=== PATIENT | female | born 1975 | race Caucasian/White ===

== ENCOUNTER → 2016-09-29 | Outpatient (CLI) | payer BC ==
[~2016-09-29] MED LIST: ALEVE 220MG220 MG PO; ALLEGRA-D 24HR1 T24 PO; CLARITIN-D 10 M1 T24 PO; COLACE 100100 MG/CAP PO; DIFLUCAN150 MG PO; FLAGYL 250250 MG/TAB PO; LOVENOX120 MG/0.8 SQ; MULTI VITAMINS1 TAB PO; NASACORT OTC NS; NORCO 325 MG-51 TAB PO; NORCO 325 MG-7.1 TAB PO; PRENATAL PO; PROBIOTIC ACID1 EAC3 PO; PROTONIX20 MG PO; TRANDATE300 MG PO; TUMS500 MG PO; ULTRAM 50MG TAB50 MG PO; ZITHROMAX Z PA250 MG PO; ZOFRAN ODT4 MG PO; ZOSYN IV; ZYRTEC 10MG10 MG PO
== END ==
LOC: SUN.DIA 08:50
DX: O24.419 Gestational diabetes mellitus in pregnancy, unspecified control (principal); Z3A.31 31 weeks gestation of pregnancy; Z71.3 Dietary counseling and surveillance
CPT/HCPCS: G0108

== ENCOUNTER 2016-10-02 01:52 | Outpatient (CLI) | payer BC ==
[~2016-10-02] VITALS: Ht 170.2 cm; Wt 127.7 kg
[2016-10-02] VITALS (16 sets, daily range): BP systolic 138–195; BP diastolic 75–108; PULSE 75–107; TEMP 97.7–98.7
[~2016-10-02 01:52] MED LIST changes: -DIFLUCAN150 MG PO; -FLAGYL 250250 MG/TAB PO; -LOVENOX120 MG/0.8 SQ; -PRENATAL PO; -PROBIOTIC ACID1 EAC3 PO; -TRANDATE300 MG PO; -TUMS500 MG PO; -ZITHROMAX Z PA250 MG PO; -ZOSYN IV; -ZYRTEC 10MG10 MG PO
[2016-10-02] MEDS ORDERED: ZYRTEC 10MG10 MG PO (02:43)
[2016-10-02] MEDS ORDERED: PRENATAL PO (02:43)
[2016-10-02] MEDS ORDERED: TUMS500 MG PO (02:44)
[2016-10-02 03:58] LABS: BASO % 0.2 % (0.0-2.0); EOS % 0.3 % (0-4.0); GRAN # 11.8 (1.4-6.5); GRAN % 87.1 % (42.2-75.2); LYMPH # 0.9 (1.2-3.4); LYMPH % 6.4 % (20.0-51.0); MEAN CELL VOLUME 88 fl (80.0-100.0); MEAN CORPUSCULAR HGB CONC 34 g/dl (33.0-37.0); MEAN PLATELET VOLUME 10.9 fl (7.4-10.4); MONO # 0.8 (0.1-0.6); MONO % 5.6 % (1.7-9.3); PLATELET COUNT 199 K/mm3 (130-400); RED BLOOD COUNT 4.02 M/mm3 (4.10-5.30); REDCELL DISTRIBUTION WIDTH-CV 13.9 % (11.5-14.5); WHITE BLOOD COUNT 13.5 K/mm3 (4.8-10.8)
[2016-10-02 03:59] LABS: HEMATOCRIT 35.5 % (37.0-47.0); HEMOGLOBIN 11.9 g/dl (12.5-16.0); MEAN CORPUSCULAR HEMOGLOBIN 30 pg (27.0-31.0)
[2016-10-02 04:08] LABS: ADJUSTED CALCIUM 9.7 mg/dL (8.4-10.2); ALANINE AMINOTRANSFERASE 37 U/L (9-52); ALBUMIN 3.4 gm/dL (3.5-5.0); ALKALINE PHOSPHATASE 160 U/L (50-136); ANION GAP 11 mmol/L (7-16); BILIRUBIN,TOTAL 0.6 mg/dL (0.0-1.0); BLOOD UREA NITROGEN 11 mg/dL (7-17); CALCIUM 9.2 mg/dL (8.4-10.2); CARBON DIOXIDE 21 mmol/L (22-30); CHLORIDE 104 mmol/L (98-107); CREATININE, serum 0.68 mg/dL (0.52-1.25); GLUCOSE 136 mg/dL (74-106); LIPASE 71 U/L (23-300); POTASSIUM 4.3 mmol/L (3.4-5.0); SODIUM 135 mmol/L (137-145)
[2016-10-02 04:27] LABS: PH 5 (5-8); SQUAMOUS EPITHELIAL 0-2 /hpf; URINE APPEARANCE Cloudy; URINE BACTERIA Rare /hpf; URINE BILIRUBIN Negative (NEGATIVE); URINE BLOOD Negative (NEGATIVE); URINE COLOR Yellow; URINE GLUCOSE 1+ (NEGATIVE); URINE KETONE 1+ (NEGATIVE); URINE RBC 0-2 /hpf; URINE UROBILINOGEN Negative (NEGATIVE)
[2016-10-02 07:44] LABS: TROPONIN-I < 0.012 ng/mL (0.000-0.034)
[2017-05-18] MEDS ORDERED: ULTRAM 50MG TAB50 MG PO (15:39)
[2017-05-18] MEDS ORDERED: ZOSYN IV (15:42)
[2017-05-18] MEDS ORDERED: DIFLUCAN150 MG PO (15:43)
[2017-05-18] MEDS ORDERED: PROBIOTIC ACID1 EAC3 PO (15:44)
== END 2016-10-02 08:30 | disposition short-term general hospital (02) ==
LOC: LDRO 01:52
PROVIDERS: Obstetrics & Gynecology
DX: O26.893 Other specified pregnancy related conditions, third trimester (principal); R10.84 Generalized abdominal pain; O99.213 Obesity complicating pregnancy, third trimester; O24.419 Gestational diabetes mellitus in pregnancy, unspecified control; O09.33 Supervision of pregnancy with insufficient antenatal care, third trimester; O16.3 Unspecified maternal hypertension, third trimester; Z3A.31 31 weeks gestation of pregnancy
CPT/HCPCS: J0702; J2405; J3475; J7120

== ENCOUNTER → 2016-11-21 | Outpatient (CLI) | payer BC ==
[~2016-11-21] MED LIST changes: +DIFLUCAN150 MG PO; +FLAGYL 250250 MG/TAB PO; +LOVENOX120 MG/0.8 SQ; +PRENATAL PO; +PROBIOTIC ACID1 EAC3 PO; +TRANDATE300 MG PO; +TUMS500 MG PO; +ZITHROMAX Z PA250 MG PO; +ZOSYN IV; +ZYRTEC 10MG10 MG PO
== END ==
LOC: COL.VAS 09:36
DX: Z01.818 Encounter for other preprocedural examination (principal); R01.1 Cardiac murmur, unspecified; C48.0 Malignant neoplasm of retroperitoneum

== ENCOUNTER 2016-12-01 01:54 | Emergency (ER) | payer BC ==
[2006-07-28 15:29] VITALS: BP 109/54
[~2016-12-01] VITALS: Ht 170.2 cm; Wt 113.6 kg
[~2016-12-01 01:54] MED LIST changes: -DIFLUCAN150 MG PO; -FLAGYL 250250 MG/TAB PO; -LOVENOX120 MG/0.8 SQ; -PROBIOTIC ACID1 EAC3 PO; -TRANDATE300 MG PO; -ZITHROMAX Z PA250 MG PO; -ZOSYN IV
[2016-12-01 02:33] LABS: BASO % 0.3 % (0.0-2.0); EOS % 0.3 % (0-4.0); GRAN # 9.3 (1.4-6.5); GRAN % 78.6 % (42.2-75.2); LYMPH # 1.2 (1.2-3.4); LYMPH % 9.8 % (20.0-51.0); MEAN CELL VOLUME 92 fl (80.0-100.0); MEAN CORPUSCULAR HGB CONC 33 g/dl (33.0-37.0); MONO # 1.2 (0.1-0.6); MONO % 10.4 % (1.7-9.3); PLATELET COUNT 240 K/mm3 (130-400); RED BLOOD COUNT 3.55 M/mm3 (4.10-5.30); REDCELL DISTRIBUTION WIDTH-CV 13.5 % (11.5-14.5); WHITE BLOOD COUNT 11.8 K/mm3 (4.8-10.8)
[2016-12-01 02:37] LABS: HEMATOCRIT 32.6 % (37.0-47.0); HEMOGLOBIN 10.6 g/dl (12.5-16.0); INR 1.3 (0.8-3.0); MEAN CORPUSCULAR HEMOGLOBIN 30 pg (27.0-31.0)
[2016-12-01 02:39] LABS: PARTIAL THROMBOPLASTIN TIME 36.6 SECONDS (26.0-37.0)
[2016-12-01 02:45] LABS: ADJUSTED CALCIUM 9.3 mg/dL (8.4-10.2); ALBUMIN 3.9 gm/dL (3.5-5.0); BILIRUBIN,TOTAL 1.2 mg/dL (0.0-1.0); CALCIUM 9.2 mg/dL (8.4-10.2); CREATININE, serum 1.22 mg/dL (0.52-1.25); POTASSIUM 4.1 mmol/L (3.4-5.0); TOTAL PROTEIN 7.9 gm/dL (6.4-8.2)
[2016-12-01 02:59] LABS: PH 5 (5-8); URINE APPEARANCE Hazy; URINE BACTERIA Rare /hpf; URINE BILIRUBIN Negative (NEGATIVE); URINE BLOOD 1+ (NEGATIVE); URINE COLOR Amber; URINE GLUCOSE Negative (NEGATIVE); URINE KETONE Negative (NEGATIVE); URINE RBC 0-2 /hpf; URINE UROBILINOGEN Negative (NEGATIVE)
[2016-12-01 03:13] LABS: C-REACTIVE PROTEIN 31.5 mg/dL (0.0-0.9)
[2016-12-01 03:59] LABS: PH 6 (5-8); SQUAMOUS EPITHELIAL 0-2 /hpf; URINE APPEARANCE Clear; URINE BACTERIA None Seen /hpf; URINE BILIRUBIN Negative (NEGATIVE); URINE BLOOD Negative (NEGATIVE); URINE COLOR Yellow; URINE GLUCOSE Negative (NEGATIVE); URINE KETONE Negative (NEGATIVE); URINE RBC 0-2 /hpf; URINE UROBILINOGEN Negative (NEGATIVE); URINE WBC 0-2 /hpf
[2016-12-01] MEDS ORDERED: LOVENOX120 MG/0.8 SQ (06:18)
[2016-12-01] MEDS ORDERED: TRANDATE300 MG PO (06:18)
[2016-12-01] MEDS ORDERED: ZITHROMAX Z PA250 MG PO (06:19)
[2016-12-01] MEDS ORDERED: FLAGYL 250250 MG/TAB PO (06:20)
[2016-12-01 08:05] VITALS: BP 137/79; PULSE 97; TEMP 98.4
[2017-05-18] MEDS ORDERED: ULTRAM 50MG TAB50 MG PO (15:39)
[2017-05-18] MEDS ORDERED: ZOSYN IV (15:42)
[2017-05-18] MEDS ORDERED: DIFLUCAN150 MG PO (15:43)
[2017-05-18] MEDS ORDERED: PROBIOTIC ACID1 EAC3 PO (15:44)
== END 2016-12-01 08:08 | disposition short-term general hospital (02) ==
LOC: COL.ER 01:54
PROVIDERS: Emergency Medicine
DX: C17.0 Malignant neoplasm of duodenum (principal); C48.0 Malignant neoplasm of retroperitoneum; R50.9 Fever, unspecified; I10 Essential (primary) hypertension; Z79.01 Long term (current) use of anticoagulants; Z86.711 Personal history of pulmonary embolism
CPT/HCPCS: J0692; J1170; J2405; J7030; Q9967

== ENCOUNTER → 2017-05-03 | Outpatient (CLI) | payer BC ==
[~2017-05-03] MED LIST changes: +DIFLUCAN150 MG PO; +FLAGYL 250250 MG/TAB PO; +LOVENOX120 MG/0.8 SQ; +PROBIOTIC ACID1 EAC3 PO; +TRANDATE300 MG PO; +ZITHROMAX Z PA250 MG PO; +ZOSYN IV
== END ==
LOC: COL.RAD 07:21
DX: K65.1 Peritoneal abscess (principal); Z98.890 Other specified postprocedural states; R10.9 Unspecified abdominal pain
CPT/HCPCS: Q9967

== ENCOUNTER 2017-05-18 16:01 | Outpatient (RCR) | payer BC ==
[2006-07-28 15:29] VITALS: BP 109/54
[~2017-05-18] VITALS: Ht 170.2 cm; Wt 90.1 kg
[2017-05-18 15:52] VITALS: BP 112/81; PULSE 88
[2017-05-18 15:56] LABS: ADD PATHOLOGY DIFF REVIEW NO
[2017-05-18 16:00] LABS: MEAN CELL VOLUME 88 fl (80.0-100.0); MEAN CORPUSCULAR HGB CONC 32 g/dl (33.0-37.0); MEAN PLATELET VOLUME 10.4 fl (7.4-10.4); PLATELET COUNT 193 K/mm3 (130-400); RED BLOOD COUNT 4.09 M/mm3 (4.10-5.30); REDCELL DISTRIBUTION WIDTH-CV 15.2 % (11.5-14.5); WHITE BLOOD COUNT 6.7 K/mm3 (4.8-10.8)
[2017-05-18 16:02] LABS: HEMOGLOBIN 11.6 g/dl (12.5-16.0); MEAN CORPUSCULAR HEMOGLOBIN 28 pg (27.0-31.0)
[2017-05-18 16:14] LABS: ALBUMIN 3.7 gm/dL (3.5-5.0); BILIRUBIN,TOTAL 0.5 mg/dL (0.0-1.0); CALCIUM 8.8 mg/dL (8.4-10.2); CREATININE, serum 0.89 mg/dL (0.52-1.25); POTASSIUM 3.9 mmol/L (3.4-5.0); TOTAL PROTEIN 7.3 gm/dL (6.4-8.2)
[2017-05-18 16:27] LABS: BAND 3 % (0-10); NEUTROPHILS 63 % (42.0-75.2); TOTAL CELLS COUNTED 100
[2017-05-18 16:29] LABS: HYPOCHROMIA 2+
[2017-05-18 16:30] LABS: ANISOCYTOSIS 1+; PLATELET ESTIMATE NORMAL (NORMAL)
== END 2017-05-25 19:06 | disposition home or self-care (01) ==
LOC: EUO 16:01
PROVIDERS: Family Medicine
DX: N73.9 Female pelvic inflammatory disease, unspecified (principal); Z95.828 Presence of other vascular implants and grafts
CPT/HCPCS: J1644

== ENCOUNTER → 2018-01-05 | Outpatient (CLI) | payer BC ==
[~2018-01-05] MED LIST changes: +COMPAZINE 110 MG/TAB PO; +LOVENOX 4040 MG/0.4 SQ; +ZOFRAN 4MG T4 MG/TAB PO
== END ==
LOC: COL.VAS 09:04
DX: T88.7XXS Unspecified adverse effect of drug or medicament, sequela (principal); Z92.21 Personal history of antineoplastic chemotherapy

== ENCOUNTER 2018-01-12 09:30 | Outpatient (RCR) | payer BC ==
[2006-07-28 15:29] VITALS: BP 109/54
[2018-01-05 09:59] VITALS: BP 120/49; PULSE 69; TEMP 98.4
[2018-01-08 10:05] VITALS: BP 113/58; PULSE 71; TEMP 98
[2018-01-10 13:06] VITALS: BP 117/61; PULSE 75; TEMP 98
[~2018-01-12] VITALS: Ht 170.2 cm; Wt 80.5 kg
[2018-01-12 08:55] VITALS: BP 119/62; PULSE 70; TEMP 98
== END 2018-01-12 10:05 | disposition home or self-care (01) ==
LOC: EUO 09:30
DX: O99.011 Anemia complicating pregnancy, first trimester (principal); O9A.111 Malignant neoplasm complicating pregnancy, first trimester; C49.9 Malignant neoplasm of connective and soft tissue, unspecified; Z3A.00 Weeks of gestation of pregnancy not specified
CPT/HCPCS: J2916

== ENCOUNTER 2018-07-13 19:55 | Outpatient (CLI) | payer BC ==
[2006-07-28 15:29] VITALS: BP 109/54
[~2018-07-13] VITALS: Ht 170.2 cm; Wt 80.0 kg
[2018-07-13 20:55] VITALS: BP 143/87; PULSE 81; TEMP 97.8
[2018-07-13] MEDS ORDERED: ZANTAC 7575 MG PO (21:05)
[2018-07-13] MEDS ORDERED: TUMS500 MG PO (21:06)
[2018-07-13] MEDS ORDERED: PRENATAL PO (21:07)
[2018-07-13] MEDS ORDERED: LEVEMIR100 U/ML SQ ×2 (21:09→21:11)
[2018-07-13] MEDS ORDERED: NOVOLOG 100U100 U/M1 SQ (21:12)
[2018-07-13] MEDS ORDERED: TYLENOL 500MG500 MG PO (21:14)
[2018-07-13 21:30] VITALS: BP 148/81; PULSE 69; TEMP 97.8
[2018-07-13 21:35] LABS: COLLECTION METHOD CLEAN CATCH
[2018-07-13 21:38] LABS: BASO % 0.3 % (0.0-2.0); EOS # 0.1 (0.0-0.7); EOS % 1.2 % (0-4.0); GRAN # 5.8 (1.4-6.5); GRAN % 79.9 % (42.2-75.2); HEMOGLOBIN 11.4 g/dl (12.5-16.0); LYMPH # 0.8 (1.2-3.4); LYMPH % 10.3 % (20.0-51.0); MEAN CELL VOLUME 97 fl (80.0-100.0); MEAN CORPUSCULAR HEMOGLOBIN 34 pg (27.0-31.0); MEAN CORPUSCULAR HGB CONC 35 g/dl (33.0-37.0); MEAN PLATELET VOLUME 9.8 fl (7.4-10.4); MONO # 0.5 (0.1-0.6); MONO % 7.3 % (1.7-9.3); PLATELET COUNT 152 K/mm3 (130-400); RED BLOOD COUNT 3.35 M/mm3 (4.10-5.30); REDCELL DISTRIBUTION WIDTH-CV 12.8 % (11.5-14.5)
[2018-07-13 21:42] LABS: MUCOUS Present /lpf; PH 6 (5-8); SQUAMOUS EPITHELIAL 0-2 /hpf; URINE APPEARANCE Clear; URINE BACTERIA None Seen /hpf; URINE BILIRUBIN Negative (NEGATIVE); URINE BLOOD Negative (NEGATIVE); URINE COLOR Yellow; URINE GLUCOSE Negative (NEGATIVE); URINE KETONE Negative (NEGATIVE); URINE LEUKOCYTE ESTERASE Trace (NEGATIVE); URINE NITRATE Negative (NEGATIVE); URINE PROTEIN(semi-quant) Negative (NEGATIVE); URINE RBC 0-2 /hpf; URINE UROBILINOGEN Negative (NEGATIVE); URINE WBC 0-2 /hpf
[2018-07-13 21:49] LABS: ALBUMIN 2.9 gm/dL (3.5-5.0); BILIRUBIN,TOTAL 0.3 mg/dL (0.0-1.0); CALCIUM 7.9 mg/dL (8.4-10.2); CREATININE, serum 0.77 mg/dL (0.52-1.25); POTASSIUM 3.7 mmol/L (3.4-5.0); TOTAL PROTEIN 5.8 gm/dL (6.4-8.2)
[2018-07-13 21:51] LABS: HEMATOCRIT 32.6 % (37.0-47.0)
[2018-07-13 22:00] VITALS: BP 124/77; PULSE 66
[2018-07-13 22:30] VITALS: BP 135/82; PULSE 67
== END 2018-07-13 22:50 | disposition home or self-care (01) ==
LOC: LDRO 19:55 → COL.ER 19:55 → EDSTATUS 20:27 → LDRO 22:50
PROVIDERS: Obstetrics & Gynecology
DX: O16.3 Unspecified maternal hypertension, third trimester (principal); O99.89 Other specified diseases and conditions complicating pregnancy, childbirth and the puerperium; M79.89 Other specified soft tissue disorders; Z3A.33 33 weeks gestation of pregnancy

== ENCOUNTER 2018-07-25 23:11 | Outpatient (CLI) | payer BC ==
[~2018-07-25] VITALS: Ht 170.2 cm; Wt 80.5 kg
[~2018-07-25 23:11] MED LIST changes: +LEVEMIR100 U/ML SQ; +NOVOLOG 100U100 U/M1 SQ; +TYLENOL 500MG500 MG PO; +ZANTAC 7575 MG PO
[2018-07-25 23:45] VITALS: BP 143/91; PULSE 72; TEMP 98.1
[2018-07-26] VITALS: BP 137/84; PULSE 67
[2018-07-26 00:10] VITALS: BP 139/87; PULSE 65
[2018-07-26 00:20] VITALS: BP 143/92; PULSE 73
== END 2018-07-26 00:28 | disposition home or self-care (01) ==
LOC: LDRO 23:11
DX: O16.3 Unspecified maternal hypertension, third trimester (principal); Z3A.35 35 weeks gestation of pregnancy

== ENCOUNTER 2018-11-16 05:21 | Day surgery (SDC) | payer BC ==
[2006-07-28 15:29] VITALS: BP 109/54
[~2018-11-16] VITALS: Ht 170.2 cm; Wt 70.5 kg
[2018-11-16 05:55] VITALS: BP 137/95; PULSE 91; TEMP 98.5
[2018-11-16] MEDS ORDERED: TYLENOL 325MG325 MG PO (06:03)
[2018-11-16 08:29] VITALS: BP 137/81; PULSE 65; TEMP 97.5
--- NOTE | 2018-11-16 08:29 | NUR ---
The patient arrived back to [facility] from the operating room at this time. The patient appears alert and oriented and denies any pain or nausea at this time. The patient's dressing has a small amount of drainage present on the 2x2 under the tegaderm at this time. Bandaid appears clean, dry, and intact. The patient's post operative vital signs were started at this time. The patient requests to try some cranberry juice and a muffin at this time. Call light is within reach. Will continue to monitor the patient.
[2018-11-16 08:44] VITALS: BP 127/69; PULSE 65
[2018-11-16] MEDS ORDERED: MOTRIN 600600 MG/TAB PO (08:44)
[2018-11-16] MEDS ORDERED: PERCOCET 325 MG1 TA2 PO (08:44)
--- NOTE | 2018-11-16 08:44 | NUR ---
The patient appears to be tolerating the food and drink well. The patient's is at her bedside at this time. Vital signs appear stable. Will continue to monitor the patient.
[2018-11-16 08:59] VITALS: BP 142/64; PULSE 67
--- NOTE | 2018-11-16 08:59 | NUR ---
The patient voices a desire to be discharged home. The patient's IV to her right anecubital was removed and a pressure dressing was applied to the site. The nurse instructed the patient to get dressed and notify the staff when she is ready to review her discharge paperwork.
--- NOTE | 2018-11-16 09:10 | NUR ---
Discharge instructions were reviewed with the patient and her at this time. They both verbalized understanding and have no questions for the nurse at this time. The patient is dressed and ready to be escorted out.
--- NOTE | 2018-11-16 09:15 | NUR ---
The patient ambulated out independently using a steady gait and appeared to tolerate the activity well. The patient's belongings and discharge paperwork were sent with her. The patient's is present to drive her home.
== END 2018-11-16 09:15 | disposition home or self-care (01) ==
LOC: SDCO 05:21
DX: C48.0 Malignant neoplasm of retroperitoneum (principal); Z79.899 Other long term (current) drug therapy; K21.9 Gastro-esophageal reflux disease without esophagitis; Z80.8 Family history of malignant neoplasm of other organs or systems; C49.9 Malignant neoplasm of connective and soft tissue, unspecified
CPT/HCPCS: J0690; J1644; J2704; J7120

== ENCOUNTER → 2018-12-27 | Outpatient (CLI) | payer BC ==
[~2018-12-27] MED LIST changes: +MOTRIN 600600 MG/TAB PO; +PERCOCET 325 MG1 TA2 PO; +TYLENOL 325MG325 MG PO; +ZOFRAN8 MG PO
== END ==
LOC: COL.RAD 08:04
DX: C49.4 Malignant neoplasm of connective and soft tissue of abdomen (principal); K76.0 Fatty (change of) liver, not elsewhere classified; N28.89 Other specified disorders of kidney and ureter; R59.0 Localized enlarged lymph nodes; Z95.828 Presence of other vascular implants and grafts; Z90.49 Acquired absence of other specified parts of digestive tract
CPT/HCPCS: C1750; J1644; Q9967

== ENCOUNTER 2018-12-28 13:04 | Day surgery (SDC) | payer BC ==
[2006-07-28 15:29] VITALS: BP 109/54
[~2018-12-28] VITALS: Ht 170.3 cm; Wt 68.0 kg
[2018-12-28 15:26] VITALS: BP 102/74; PULSE 77; TEMP 98.7
--- NOTE | 2018-12-28 16:25 | NUR ---
Report to Eitan Rutherford RN who assumed care at this time.
--- NOTE | 2018-12-28 19:16 | NUR ---
Dr. Rodas in to nga with pt and explain procedure.
[2018-12-28] MEDS ORDERED: MOTRIN 600600 MG/TAB PO (20:52)
[2018-12-28] MEDS ORDERED: NORCO 325 MG-51 TAB PO (20:52)
[2018-12-28 21:00] VITALS: BP 143/84; PULSE 72; TEMP 98
--- NOTE | 2018-12-28 21:00 | NUR ---
PT arrived to floor, RM 347, post OP from replacement of Blake double lumen catheter to right chest; surgical site without S/S of infection or active bleeding; tegaderm and tape in place up on arrival. Surgical fluids running at 30ml/hr to LAC; No acute C/O pain at time of arrival; Post-op vital initiated. Will continue to monitor. CDA
[2018-12-28 21:15] VITALS: BP 144/80; PULSE 70
[2018-12-28 21:30] VITALS: BP 143/79; PULSE 78
[2018-12-28 21:45] VITALS: BP 138/82; PULSE 75
[2018-12-28 22:00] VITALS: BP 141/79; PULSE 79
--- NOTE | 2018-12-28 22:33 | NUR ---
PT completed discharge teaching with verbal understanding; PT able to AMB, urinate, and tolerate minimal site pain. Hard written script given with D/C folder, device instruction packet, and follow up instructions. LAC IV removed with full catheter intact. No further question or concerns at time of exit; PT escorted down via wheelchair to personal vehicle with jinriksha driver. All personal items removed from room by guest and patient at time of exit. CDA
== END 2018-12-28 22:41 | disposition home or self-care (01) ==
LOC: COL.CAR 13:04
DX: T82.43XA Leakage of vascular dialysis catheter, initial encounter (principal); C49.9 Malignant neoplasm of connective and soft tissue, unspecified; Z80.8 Family history of malignant neoplasm of other organs or systems; Z80.0 Family history of malignant neoplasm of digestive organs; K21.9 Gastro-esophageal reflux disease without esophagitis; Z86.711 Personal history of pulmonary embolism; Z79.899 Other long term (current) drug therapy; Z87.59 Personal history of other complications of pregnancy, childbirth and the puerperium; Z86.32 Personal history of gestational diabetes
CPT/HCPCS: J2704; J3010; J7120

== ENCOUNTER 2019-02-22 10:30 | Outpatient (RCR) | payer BC ==
[2006-07-28 15:29] VITALS: BP 109/54
[2018-11-30 10:30] VITALS: BP 136/87; PULSE 80; TEMP 97.9
[2018-12-07 11:23] VITALS: BP 140/83; PULSE 69; TEMP 98.2
[2018-12-14 11:12] VITALS: BP 151/84; PULSE 75; TEMP 98.2
--- NOTE | 2018-12-14 11:12 | NUR ---
Pt arrived with dressing intact and Blake dangling.Per pt request dressing changed per protocol and second tegaderm applied to prevent catheter from dangling.Catheter is 16.5cm from site to y-connector,stiches intact.
[2018-12-21 11:03] LABS: HEMOGLOBIN 11.9 g/dl (12.5-16.0); MEAN CELL VOLUME 91 fl (80.0-100.0); MEAN CORPUSCULAR HEMOGLOBIN 30 pg (27.0-31.0); MEAN CORPUSCULAR HGB CONC 33 g/dl (33.0-37.0); PLATELET COUNT 160 K/mm3 (130-400); RED BLOOD COUNT 3.92 M/mm3 (4.10-5.30)
[2018-12-21 11:10] VITALS: BP 131/82; PULSE 87; TEMP 97.7
[2018-12-21 11:14] LABS: ALBUMIN 3.6 gm/dL (3.5-5.0); BILIRUBIN,TOTAL 0.6 mg/dL (0.0-1.0); CALCIUM 8.4 mg/dL (8.4-10.2); CREATININE, serum 0.85 (0.52-1.25); POTASSIUM 3.7 mmol/L (3.4-5.0); TOTAL PROTEIN 6.6 gm/dL (6.4-8.2)
[2018-12-21 11:20] LABS: HEMATOCRIT 35.7 % (37.0-47.0)
[2018-12-21 11:38] LABS: BAND 4 % (0-10); EOSINOPHIL 1 % (0-4); LYMPHOCYTE 18 % (20.0-51.0); NEUTROPHILS 73 % (42.0-75.2); PLATELET ESTIMATE NORMAL (NORMAL)
[2018-12-28 11:24] LABS: HEMOGLOBIN 11.4 g/dl (12.5-16.0); MEAN CELL VOLUME 92 fl (80.0-100.0); MEAN CORPUSCULAR HEMOGLOBIN 30 pg (27.0-31.0); MEAN CORPUSCULAR HGB CONC 33 g/dl (33.0-37.0); MEAN PLATELET VOLUME 10.4 fl (7.4-10.4); PLATELET COUNT 205 K/mm3 (130-400); REDCELL DISTRIBUTION WIDTH-CV 12.3 % (11.5-14.5)
[2018-12-28 11:25] LABS: HEMATOCRIT 35.1 % (37.0-47.0)
--- NOTE | 2018-12-28 11:30 | NUR ---
Blake wrapped with tegaderm and gauze at leak site to prevent leak and contamination.
[2018-12-28 11:33] VITALS: BP 116/71; PULSE 81; TEMP 98.6
[2018-12-28 11:36] LABS: ALBUMIN 3.3 gm/dL (3.5-5.0); BILIRUBIN,TOTAL 0.6 mg/dL (0.0-1.0); CREATININE, serum 0.91 (0.52-1.25); POTASSIUM 3.8 mmol/L (3.4-5.0); TOTAL PROTEIN 6.1 gm/dL (6.4-8.2)
[2018-12-28 11:54] LABS: BAND 6 % (0-10); EOSINOPHIL 9 % (0-4); LYMPHOCYTE 21 % (20.0-51.0); NEUTROPHILS 60 % (42.0-75.2); PLATELET ESTIMATE NORMAL (NORMAL)
--- NOTE | 2018-12-28 14:50 | NUR ---
Pt resting well, waiting for currie exchange. Transfering care to pt's [facility] account at this time.
[2019-01-04 11:55] VITALS: BP 121/73; PULSE 76; TEMP 98.2
[2019-01-04 12:20] LABS: HEMOGLOBIN 11.8 g/dl (12.5-16.0); MEAN CELL VOLUME 90 fl (80.0-100.0); MEAN CORPUSCULAR HEMOGLOBIN 30 pg (27.0-31.0); MEAN CORPUSCULAR HGB CONC 33 g/dl (33.0-37.0); MEAN PLATELET VOLUME 10.8 fl (7.4-10.4); PLATELET COUNT 123 K/mm3 (130-400); RED BLOOD COUNT 3.95 M/mm3 (4.10-5.30); REDCELL DISTRIBUTION WIDTH-CV 11.9 % (11.5-14.5)
[2019-01-04 12:22] LABS: HEMATOCRIT 35.5 % (37.0-47.0)
[2019-01-04 12:31] LABS: ALBUMIN 3.5 gm/dL (3.5-5.0); BILIRUBIN,TOTAL 0.5 mg/dL (0.0-1.0); CALCIUM 8.6 mg/dL (8.4-10.2); CREATININE, serum 0.86 (0.52-1.25); POTASSIUM 3.7 mmol/L (3.4-5.0); TOTAL PROTEIN 6.5 gm/dL (6.4-8.2)
[2019-01-04 12:42] LABS: BAND 3 % (0-10); EOSINOPHIL 6 % (0-4); LYMPHOCYTE 36 % (20.0-51.0); METAMYELOCYTE 1 % (0-0); NEUTROPHILS 45 % (42.0-75.2); PLATELET ESTIMATE DECREASED (NORMAL)
[2019-01-11 11:41] VITALS: BP 147/90; PULSE 67; TEMP 97.8
[2019-01-11 11:44] LABS: MEAN CELL VOLUME 91 fl (80.0-100.0); MEAN CORPUSCULAR HGB CONC 33 g/dl (33.0-37.0); MEAN PLATELET VOLUME 10.9 fl (7.4-10.4); PLATELET COUNT 108 K/mm3 (130-400); RED BLOOD COUNT 3.26 M/mm3 (4.10-5.30); REDCELL DISTRIBUTION WIDTH-CV 12.5 % (11.5-14.5)
[2019-01-11 11:46] LABS: HEMATOCRIT 29.6 % (37.0-47.0); HEMOGLOBIN 9.9 g/dl (12.5-16.0); MEAN CORPUSCULAR HEMOGLOBIN 30 pg (27.0-31.0)
[2019-01-11 11:53] LABS: ALBUMIN 3.2 gm/dL (3.5-5.0); BILIRUBIN,TOTAL 0.3 mg/dL (0.0-1.0); CALCIUM 8.3 mg/dL (8.4-10.2); CREATININE, serum 0.84 (0.52-1.25); POTASSIUM 3.8 mmol/L (3.4-5.0); TOTAL PROTEIN 6.1 gm/dL (6.4-8.2)
[2019-01-11 11:58] LABS: EOSINOPHIL 8 % (0-4); LYMPHOCYTE 40 % (20.0-51.0); NEUTROPHILS 40 % (42.0-75.2); PLATELET ESTIMATE DECREASED (NORMAL)
[2019-01-18 11:11] LABS: HEMOGLOBIN 11.8 g/dl (12.5-16.0); MEAN CELL VOLUME 94 fl (80.0-100.0); MEAN CORPUSCULAR HEMOGLOBIN 30 pg (27.0-31.0); MEAN CORPUSCULAR HGB CONC 32 g/dl (33.0-37.0); MEAN PLATELET VOLUME 10.6 fl (7.4-10.4); PLATELET COUNT 151 K/mm3 (130-400); REDCELL DISTRIBUTION WIDTH-CV 13.7 % (11.5-14.5)
[2019-01-18 11:15] LABS: HEMATOCRIT 36.5 % (37.0-47.0)
[2019-01-18 11:41] LABS: BAND 3 % (0-10); LYMPHOCYTE 5 % (20.0-51.0); NEUTROPHILS 87 % (42.0-75.2)
[2019-01-18 11:42] LABS: PLATELET ESTIMATE NORMAL (NORMAL)
[2019-01-18 12:09] LABS: ALBUMIN 3.4 gm/dL (3.5-5.0); BILIRUBIN,TOTAL 0.4 mg/dL (0.0-1.0); CALCIUM 8.7 mg/dL (8.4-10.2); CREATININE, serum 0.89 (0.52-1.25); TOTAL PROTEIN 6.5 gm/dL (6.4-8.2)
[2019-01-22 19:39] LABS: CK total - for Isoenzymes 13 U/L (26 - 192)
[2019-01-25 11:14] VITALS: BP 119/60; PULSE 73; TEMP 97.6
[2019-01-25 11:23] LABS: HEMOGLOBIN 10.4 g/dl (12.5-16.0); MEAN CELL VOLUME 93 fl (80.0-100.0); MEAN CORPUSCULAR HEMOGLOBIN 30 pg (27.0-31.0); MEAN CORPUSCULAR HGB CONC 33 g/dl (33.0-37.0); PLATELET COUNT 130 K/mm3 (130-400); RED BLOOD COUNT 3.43 M/mm3 (4.10-5.30); REDCELL DISTRIBUTION WIDTH-CV 14.6 % (11.5-14.5)
[2019-01-25 11:34] LABS: HEMATOCRIT 31.8 % (37.0-47.0)
[2019-01-25 11:40] LABS: ALBUMIN 3.1 gm/dL (3.5-5.0); BILIRUBIN,TOTAL 0.7 mg/dL (0.0-1.0); CALCIUM 8.1 mg/dL (8.4-10.2); CREATININE, serum 0.84 (0.52-1.25); POTASSIUM 4.3 mmol/L (3.4-5.0)
[2019-01-25 11:56] LABS: BAND 2 % (0-10); BASOPHIL 1 % (0-2); EOSINOPHIL 1 % (0-4); LYMPHOCYTE 16 % (20.0-51.0); NEUTROPHILS 80 % (42.0-75.2); PLATELET ESTIMATE DECREASED (NORMAL)
[2019-02-01 11:00] VITALS: BP 127/74; PULSE 76; TEMP 98.3
[2019-02-01 11:54] LABS: ALBUMIN 3.2 gm/dL (3.5-5.0); BILIRUBIN,TOTAL 0.4 mg/dL (0.0-1.0); CALCIUM 8.4 mg/dL (8.4-10.2); CREATININE, serum 0.8 (0.52-1.25); POTASSIUM 3.7 mmol/L (3.4-5.0); TOTAL PROTEIN 6.2 gm/dL (6.4-8.2)
[2019-02-01 12:28] LABS: MEAN CELL VOLUME 95 fl (80.0-100.0); MEAN CORPUSCULAR HGB CONC 33 g/dl (33.0-37.0); MEAN PLATELET VOLUME 10.8 fl (7.4-10.4); PLATELET COUNT 137 K/mm3 (130-400); RED BLOOD COUNT 2.93 M/mm3 (4.10-5.30); REDCELL DISTRIBUTION WIDTH-CV 14.6 % (11.5-14.5)
[2019-02-01 12:39] LABS: HEMATOCRIT 27.7 % (37.0-47.0); MEAN CORPUSCULAR HEMOGLOBIN 31 pg (27.0-31.0)
[2019-02-01 13:24] LABS: BAND 1 % (0-10); EOSINOPHIL 7 % (0-4); HYPOCHROMIA 2+; METAMYELOCYTE 4 % (0-0); MYELOCYTE 7 % (0-0); NEUTROPHILS 31 % (42.0-75.2); PLATELET ESTIMATE NORMAL (NORMAL)
[2019-02-01 13:25] LABS: LYMPHOCYTE 47 % (20.0-51.0)
[2019-02-02 09:11] LABS: PATHOLOGY DIFF REVIEW OK +
[2019-02-08 11:21] LABS: MEAN CELL VOLUME 95 fl (80.0-100.0); MEAN CORPUSCULAR HGB CONC 33 g/dl (33.0-37.0); MEAN PLATELET VOLUME 9.7 fl (7.4-10.4); PLATELET COUNT 149 K/mm3 (130-400); RED BLOOD COUNT 2.89 M/mm3 (4.10-5.30); REDCELL DISTRIBUTION WIDTH-CV 15.9 % (11.5-14.5)
[2019-02-08 11:32] LABS: ALBUMIN 3.3 gm/dL (3.5-5.0); BILIRUBIN,TOTAL 0.3 mg/dL (0.0-1.0); CALCIUM 8.4 mg/dL (8.4-10.2); CREATININE, serum 0.86 (0.52-1.25); POTASSIUM 3.5 mmol/L (3.4-5.0); TOTAL PROTEIN 6.2 gm/dL (6.4-8.2)
[2019-02-08 11:41] VITALS: BP 129/72; PULSE 81; TEMP 98.3
[2019-02-08 11:42] LABS: ANISOCYTOSIS 1+; EOSINOPHIL 12 % (0-4); LYMPHOCYTE 30 % (20.0-51.0); MYELOCYTE 2 % (0-0); NEUTROPHILS 40 % (42.0-75.2); PLATELET ESTIMATE NORMAL (NORMAL)
[2019-02-08 11:53] LABS: HEMATOCRIT 27.3 % (37.0-47.0); MEAN CORPUSCULAR HEMOGLOBIN 31 pg (27.0-31.0)
[2019-02-15 13:18] LABS: MEAN CELL VOLUME 96 fl (80.0-100.0); MEAN CORPUSCULAR HGB CONC 32 g/dl (33.0-37.0); PLATELET COUNT 160 K/mm3 (130-400); RED BLOOD COUNT 3.18 M/mm3 (4.10-5.30); REDCELL DISTRIBUTION WIDTH-CV 16.1 % (11.5-14.5)
[2019-02-15 13:20] LABS: HEMATOCRIT 30.6 % (37.0-47.0); HEMOGLOBIN 9.9 g/dl (12.5-16.0); MEAN CORPUSCULAR HEMOGLOBIN 31 pg (27.0-31.0)
[2019-02-15 13:25] VITALS: BP 128/73; PULSE 71; TEMP 98.4
[2019-02-15 13:27] LABS: ALBUMIN 3.1 gm/dL (3.5-5.0); BILIRUBIN,TOTAL 0.3 mg/dL (0.0-1.0); CALCIUM 8.2 mg/dL (8.4-10.2); CREATININE, serum 0.82 (0.52-1.25); POTASSIUM 3.2 mmol/L (3.4-5.0); TOTAL PROTEIN 5.9 gm/dL (6.4-8.2)
[2019-02-15 13:42] LABS: ANISOCYTOSIS 1+; BAND 19 % (0-10); LYMPHOCYTE 3 % (20.0-51.0); NEUTROPHILS 73 % (42.0-75.2); PLATELET ESTIMATE NORMAL (NORMAL)
[2019-02-15 13:43] LABS: DOHLE BODIES PRESENT
[~2019-02-22] VITALS: Ht 170.2 cm; Wt 63.0 kg
[2019-02-22 11:00] VITALS: BP 114/66; PULSE 84; TEMP 97.8
[2019-02-22] MEDS ORDERED: ZARXIO300 MCG/0. IJ (11:11)
[2019-02-22 11:43] LABS: MEAN CELL VOLUME 97 fl (80.0-100.0); MEAN CORPUSCULAR HGB CONC 33 g/dl (33.0-37.0); MEAN PLATELET VOLUME 11.4 fl (7.4-10.4); PLATELET COUNT 92 K/mm3 (130-400); RED BLOOD COUNT 3.05 M/mm3 (4.10-5.30); REDCELL DISTRIBUTION WIDTH-CV 15.9 % (11.5-14.5)
[2019-02-22 11:48] LABS: ALBUMIN 3.3 gm/dL (3.5-5.0); BILIRUBIN,TOTAL 0.5 mg/dL (0.0-1.0); CALCIUM 8.6 mg/dL (8.4-10.2); CREATININE, serum 0.98 (0.52-1.25); POTASSIUM 3.6 mmol/L (3.4-5.0); TOTAL PROTEIN 6.3 gm/dL (6.4-8.2)
[2019-02-22 11:59] LABS: HEMATOCRIT 29.6 % (37.0-47.0); HEMOGLOBIN 9.7 g/dl (12.5-16.0); MEAN CORPUSCULAR HEMOGLOBIN 32 pg (27.0-31.0)
[2019-02-22 13:17] LABS: BAND 11 % (0-10); EOSINOPHIL 1 % (0-4); LYMPHOCYTE 18 % (20.0-51.0); METAMYELOCYTE 3 % (0-0); NEUTROPHILS 60 % (42.0-75.2)
[2019-02-22 13:27] LABS: DOHLE BODIES PRESENT; HYPOCHROMIA 2+
[2019-02-22 13:28] LABS: PLATELET ESTIMATE DECREASED (NORMAL)
== END 2019-02-28 ==
LOC: EUO
PROVIDERS: Internal Medicine Medical Oncology
DX: C49.4 Malignant neoplasm of connective and soft tissue of abdomen (principal); Z79.01 Long term (current) use of anticoagulants
CPT/HCPCS: J1644

== ENCOUNTER 2019-03-08 10:30 | Outpatient (RCR) | payer BC ==
[2006-07-28 15:29] VITALS: BP 109/54
[2019-03-01 12:18] VITALS: BP 131/74; PULSE 92; TEMP 98.7
[~2019-03-08] VITALS: Ht 170.2 cm; Wt 63.0 kg
[~2019-03-08 10:30] MED LIST changes: +ZARXIO300 MCG/0. IJ
--- NOTE | 2019-03-11 14:35 | NUR ---
tHIS NURSE ALLED AND SPOKE WITH PT.PER PT THEY PULLED HER cENTRAL LINE OUT LAST WEEK.nO FURTHER APTS NEEDED PER PT
== END 2019-03-11 14:38 | disposition home or self-care (01) ==
LOC: EUO 10:30
DX: C49.4 Malignant neoplasm of connective and soft tissue of abdomen (principal)

== ENCOUNTER → 2019-04-12 | Outpatient (CLI) | payer BC | LOC: COL.RAD 07:03 | DX: C49.9 Malignant neoplasm of connective and soft tissue, unspecified (principal); Z90.5 Acquired absence of kidney; Z98.890 Other specified postprocedural states ==

== ENCOUNTER 2020-01-29 10:49 | Emergency (ER) | payer BC ==
[2006-07-28 15:29] VITALS: BP 109/54
[~2020-01-29] VITALS: Ht 170.2 cm; Wt 60.0 kg
[2020-01-29 11:31] VITALS: TEMP 99
[2020-01-29] MEDS ORDERED: CREON 120000 U-1 ECC PO (12:17)
[2020-01-29 12:18] LABS: COLLECTION METHOD CLEAN CATCH
[2020-01-29] MEDS ORDERED: PROTONIX 40MG T40 MG PO (12:18)
[2020-01-29] MEDS ORDERED: PROBIOTIC ACID1 EAC3 PO (12:19)
[2020-01-29] MEDS ORDERED: PRENATAL TABLET PO (12:19)
[2020-01-29 12:34] LABS: HEMOGLOBIN 10.1 g/dl (12.5-16.0); MEAN CELL VOLUME 98 fl (80.0-100.0); MEAN CORPUSCULAR HEMOGLOBIN 31 pg (27.0-31.0); MEAN CORPUSCULAR HGB CONC 31 g/dl (33.0-37.0); MEAN PLATELET VOLUME 11.2 fl (7.4-10.4); PLATELET COUNT 155 K/mm3 (130-400); RED BLOOD COUNT 3.29 M/mm3 (4.10-5.30); REDCELL DISTRIBUTION WIDTH-CV 13.9 % (11.5-14.5)
[2020-01-29 12:37] LABS: INR 1.3 (0.8-3.0); PROTHROMBIN TIME 14.4 SECONDS (9.7-12.8)
[2020-01-29 12:38] LABS: PH 5 (5-8); SQUAMOUS EPITHELIAL 0-2 /hpf; URINE APPEARANCE Clear; URINE BACTERIA Rare /hpf; URINE BILIRUBIN Negative (NEGATIVE); URINE BLOOD Negative (NEGATIVE); URINE COLOR Yellow; URINE GLUCOSE Negative (NEGATIVE); URINE KETONE Negative (NEGATIVE); URINE LEUKOCYTE ESTERASE Negative (NEGATIVE); URINE NITRATE Negative (NEGATIVE); URINE PROTEIN(semi-quant) Negative (NEGATIVE); URINE RBC None Seen /hpf; URINE UROBILINOGEN Negative (NEGATIVE)
[2020-01-29 12:39] LABS: HEMATOCRIT 32.3 % (37.0-47.0)
[2020-01-29 12:52] LABS: ALBUMIN 3.5 gm/dL (3.5-5.0); ALKALINE PHOSPHATASE 251 U/L (50-136); ANION GAP 9 mmol/L (7-16); AST,SGOT 146 U/L (15-37); BILIRUBIN,TOTAL 1.1 mg/dL (0.0-1.0); BLOOD UREA NITROGEN 18 mg/dL (7-17); C-REACTIVE PROTEIN 4.2 mg/dL (0.0-0.9); CARBON DIOXIDE 24 mmol/L (22-30); CHLORIDE 102 mmol/L (98-107); CREATININE, serum 1.32 (0.52-1.25); GLUCOSE 141 mg/dL (74-106); POTASSIUM 3.8 mmol/L (3.4-5.0); SODIUM 135 mmol/L (137-145); TOTAL PROTEIN 6.7 gm/dL (6.4-8.2)
[2020-01-29 12:56] LABS: ALANINE AMINOTRANSFERASE 78 U/L (4-34)
[2020-01-29 12:58] LABS: LIPASE < 10 U/L (23-300)
[2020-01-29 13:02] LABS: TROPONIN-I < 0.012 ng/mL (0.000-0.035)
[2020-01-29 13:14] LABS: BAND 58 % (0-10); LYMPHOCYTE 1 % (20.0-51.0); NEUTROPHILS 36 % (42.0-75.2); NUCLEATED RED BLOOD CELL 1 (0-6); PLATELET ESTIMATE NORMAL (NORMAL)
[2020-01-29 18:49] VITALS: BP 116/62; PULSE 99
== END 2020-01-29 18:35 | disposition short-term general hospital (02) ==
LOC: COL.ER 10:49
PROVIDERS: Emergency Medicine
DX: R10.12 Left upper quadrant pain (principal); K21.9 Gastro-esophageal reflux disease without esophagitis
CPT/HCPCS: C1751; J0692; J2270; J2405; J3370; J7030; J7050; J7060; Q9967

== ENCOUNTER → 2020-02-19 | Outpatient (CLI) | payer BC, MEDICARE ==
[~2020-02-19] MED LIST changes: +CREON 120000 U-1 ECC PO; +PRENATAL TABLET PO; +PROTONIX 40MG T40 MG PO
== END ==
LOC: MC.RAD 13:00
DX: Z12.31 Encounter for screening mammogram for malignant neoplasm of breast (principal)

== ENCOUNTER → 2021-02-23 | Outpatient (CLI) | payer OTHER, MEDICARE ==
[~2021-02-23] MED LIST changes: +CARAFATE 1GM1 G PO; +CREON 36000; +DECADRON 4MG TAB4 MG PO; +FERROUSAL325 MG PO; +MIRALAX PA17 GM/Dose PO; +OMNICEF 300MG300 MG PO; +REGLAN 10MG10 MG/TAB PO; +ROXICODONE 55 MG/TAB PO; +SENNA-LAX8.6 MG PO; +TYLENOL ELIX32 MG/M2 PO; +XTAMPZA ER13.5 MG PO
== END ==
LOC: MC.RAD 13:56
DX: Z12.31 Encounter for screening mammogram for malignant neoplasm of breast (principal)

== ENCOUNTER → 2021-05-10 | Outpatient (CLI) | payer OTHER, MEDICARE | LOC: COL.RAD 08:39 | DX: C49.4 Malignant neoplasm of connective and soft tissue of abdomen (principal); K76.0 Fatty (change of) liver, not elsewhere classified; R59.0 Localized enlarged lymph nodes; Z90.49 Acquired absence of other specified parts of digestive tract; Z90.5 Acquired absence of kidney ==

== ENCOUNTER 2021-05-21 16:02 | Outpatient (CLI) | payer OTHER, MEDICARE ==
[2006-07-28 15:29] VITALS: BP 109/54
[~2021-05-21] VITALS: Ht 170.2 cm; Wt 47.0 kg
[~2021-05-21 16:02] MED LIST changes: -CARAFATE 1GM1 G PO; -CREON 36000; -DECADRON 4MG TAB4 MG PO; -MIRALAX PA17 GM/Dose PO; -TYLENOL ELIX32 MG/M2 PO; -XTAMPZA ER13.5 MG PO
[2021-05-21 16:30] VITALS: BP 97/76; PULSE 83; TEMP 98.6
[2021-05-21] MEDS ORDERED: XTAMPZA ER13.5 MG PO (16:35)
[2021-05-21] MEDS ORDERED: PROTONIX 40MG T40 MG PO (16:35)
[2021-05-21] MEDS ORDERED: CARAFATE 1GM1 G PO (16:36)
[2021-05-21] MEDS ORDERED: CREON 36000 (16:36)
[2021-05-21 18:35] VITALS: BP 111/70; PULSE 68
--- NOTE | 2021-05-21 18:47 | NUR ---
PT TO EXIT AT THIS TIME VIA WHEELCHAIR. PT TOLERATED IV FLUIDS WITH NO PROBLEM. IV DC'D PRIOR TO HER DEPARTURE.
== END 2021-05-21 18:49 | disposition home or self-care (01) ==
LOC: EUO 16:02
DX: C49.4 Malignant neoplasm of connective and soft tissue of abdomen (principal); E86.0 Dehydration
CPT/HCPCS: J7030

== ENCOUNTER 2021-05-24 11:15 | Emergency (ER) | payer OTHER, MEDICARE ==
[~2021-05-24] VITALS: Ht 170.2 cm; Wt 46.4 kg
[~2021-05-24 11:15] MED LIST changes: +CARAFATE 1GM1 G PO; +CREON 36000; +XTAMPZA ER13.5 MG PO
[2021-05-24 11:44] VITALS: TEMP 98
[2021-05-24 13:22] LABS: BASO % 0.6 % (0.0-2.0); EOS # 0.1 (0.0-0.7); EOS % 2.3 % (0-4.0); GRAN % 77.7 % (42.2-75.2); HEMOGLOBIN 10.8 g/dl (12.5-16.0); LYMPH # 0.6 (1.2-3.4); LYMPH % 11.3 % (20.0-51.0); MEAN CELL VOLUME 103 fl (80.0-100.0); MEAN CORPUSCULAR HEMOGLOBIN 34 pg (27.0-31.0); MEAN CORPUSCULAR HGB CONC 33 g/dl (33.0-37.0); MEAN PLATELET VOLUME 11.4 fl (7.4-10.4); MONO # 0.4 (0.1-0.6); MONO % 7.7 % (1.7-9.3); PLATELET COUNT 133 K/mm3 (130-400); RED BLOOD COUNT 3.21 M/mm3 (4.10-5.30); REDCELL DISTRIBUTION WIDTH-CV 15.2 % (11.5-14.5)
[2021-05-24 13:23] LABS: HEMATOCRIT 33.1 % (37.0-47.0)
[2021-05-24 13:37] LABS: ALANINE AMINOTRANSFERASE 116 U/L (4-34); ALBUMIN 3.4 gm/dL (3.5-5.0); ALKALINE PHOSPHATASE 583 U/L (50-136); ANION GAP 9 mmol/L (7-16); AST,SGOT 122 U/L (15-37); BILIRUBIN,TOTAL 10.5 mg/dL (0.0-1.0); BLOOD UREA NITROGEN 8 mg/dL (7-17); CALCIUM 8.5 mg/dL (8.4-10.2); CARBON DIOXIDE 27 mmol/L (22-30); CHLORIDE 103 mmol/L (98-107); CREATININE, serum 0.81 (0.52-1.25); GLUCOSE 109 mg/dL (74-106); SODIUM 138 mmol/L (137-145); TOTAL PROTEIN 7.4 gm/dL (6.4-8.2)
[2021-05-24 13:47] LABS: LIPASE < 10 U/L (23-300)
[2021-05-24 16:10] LABS: COLLECTION METHOD CLEAN CATCH
[2021-05-24 16:24] LABS: MUCOUS Present /lpf; PH 7 (5-8); SQUAMOUS EPITHELIAL 0-2 /hpf; URINE APPEARANCE Clear; URINE BACTERIA Rare /hpf; URINE BILIRUBIN Negative (NEGATIVE); URINE BLOOD Negative (NEGATIVE); URINE COLOR Amber; URINE GLUCOSE Negative (NEGATIVE); URINE KETONE Trace (NEGATIVE); URINE LEUKOCYTE ESTERASE Negative (NEGATIVE); URINE NITRATE Negative (NEGATIVE); URINE PROTEIN(semi-quant) Negative (NEGATIVE); URINE RBC 0-2 /hpf; URINE UROBILINOGEN Negative (NEGATIVE)
[2021-05-25 06:16] LABS: BASO % 0.5 % (0.0-2.0); EOS # 0.1 (0.0-0.7); GRAN # 2.6 (1.4-6.5); GRAN % 71.1 % (42.2-75.2); HEMATOCRIT 27.9 % (37.0-47.0); HEMOGLOBIN 9.1 g/dl (12.5-16.0); LYMPH # 0.6 (1.2-3.4); LYMPH % 15.1 % (20.0-51.0); MEAN CELL VOLUME 104 fl (80.0-100.0); MEAN CORPUSCULAR HEMOGLOBIN 34 pg (27.0-31.0); MEAN CORPUSCULAR HGB CONC 33 g/dl (33.0-37.0); MEAN PLATELET VOLUME 11.4 fl (7.4-10.4); MONO # 0.4 (0.1-0.6); PLATELET COUNT 109 K/mm3 (130-400); RED BLOOD COUNT 2.68 M/mm3 (4.10-5.30); REDCELL DISTRIBUTION WIDTH-CV 15.7 % (11.5-14.5)
[2021-05-25 06:29] LABS: ALANINE AMINOTRANSFERASE 90 U/L (4-34); ALBUMIN 2.6 gm/dL (3.5-5.0); ALKALINE PHOSPHATASE 457 U/L (50-136); ANION GAP 6 mmol/L (7-16); AST,SGOT 102 U/L (15-37); BILIRUBIN,TOTAL 7.7 mg/dL (0.0-1.0); BLOOD UREA NITROGEN 5 mg/dL (7-17); CALCIUM 8.2 mg/dL (8.4-10.2); CARBON DIOXIDE 26 mmol/L (22-30); CHLORIDE 106 mmol/L (98-107); CREATININE, serum 0.69 (0.52-1.25); GLUCOSE 170 mg/dL (74-106); POTASSIUM 3.9 mmol/L (3.4-5.0); SODIUM 138 mmol/L (137-145); TOTAL PROTEIN 5.6 gm/dL (6.4-8.2)
[2021-05-25 07:04] LABS: LIPASE < 10 U/L (23-300)
[2021-05-25 10:45] VITALS: BP 125/87; PULSE 71
== END 2021-05-25 11:05 | disposition short-term general hospital (02) ==
LOC: COL.ER 11:15
PROVIDERS: Emergency Medicine; Personal Emergency Response Attendant
DX: K83.1 Obstruction of bile duct (principal); K31.1 Adult hypertrophic pyloric stenosis; E11.9 Type 2 diabetes mellitus without complications; Z20.822 Contact with and (suspected) exposure to COVID-19
CPT/HCPCS: J2270; J2405; J3480; J7030; Q9967

== ENCOUNTER 2021-06-23 16:18 | Emergency (ER) | payer OTHER, MEDICARE ==
[~2021-06-23] VITALS: Ht 170.2 cm; Wt 45.5 kg
[2021-06-23 17:55] LABS: COLLECTION METHOD CLEAN CATCH
[2021-06-23 18:11] LABS: MEAN CELL VOLUME 100 fl (80.0-100.0); MEAN CORPUSCULAR HGB CONC 35 g/dl (33.0-37.0); RED BLOOD COUNT 2.44 M/mm3 (4.10-5.30); REDCELL DISTRIBUTION WIDTH-CV 13.1 % (11.5-14.5)
[2021-06-23 18:19] LABS: ALBUMIN 2.3 gm/dL (3.5-5.0); CALCIUM 7.8 mg/dL (8.4-10.2); CREATININE, serum 0.89 mg/dL (0.57-1.11); POTASSIUM 4.3 mmol/L (3.5-4.5); TOTAL PROTEIN 5.3 gm/dL (6.2-8.1)
[2021-06-23 18:33] LABS: HEMATOCRIT 24.4 % (37.0-47.0); HEMOGLOBIN 8.6 g/dl (12.5-16.0); MEAN CORPUSCULAR HEMOGLOBIN 35 pg (27.0-31.0)
[2021-06-23 18:34] LABS: PLATELET COUNT 16 K/mm3 (130-400)
[2021-06-23 18:37] LABS: MUCOUS Present /lpf; PH 5 (5-8); SQUAMOUS EPITHELIAL 0-2 /hpf; URINE APPEARANCE Hazy; URINE BACTERIA None Seen /hpf; URINE BILIRUBIN Negative (NEGATIVE); URINE BLOOD Negative (NEGATIVE); URINE COLOR Yellow; URINE GLUCOSE Negative (NEGATIVE); URINE KETONE Negative (NEGATIVE); URINE LEUKOCYTE ESTERASE Negative (NEGATIVE); URINE NITRATE Negative (NEGATIVE); URINE PROTEIN(semi-quant) Negative (NEGATIVE); URINE RBC 0-2 /hpf; URINE UROBILINOGEN Negative (NEGATIVE)
[2021-06-23 20:34] LABS: LYMPHOCYTE 70 % (20.0-51.0); MYELOCYTE 5 % (0-0); NEUTROPHILS 5 % (42.0-75.2); PLATELET ESTIMATE DECREASED (NORMAL)
[2021-06-23] MEDS ORDERED: COMPAZINE 110 MG/TAB PO (21:26)
[2021-06-23] MEDS ORDERED: TYLENOL ELIX32 MG/M2 PO (21:27)
[2021-06-23] MEDS ORDERED: MIRALAX PA17 GM/Dose PO (21:29)
[2021-06-23] MEDS ORDERED: DECADRON 4MG TAB4 MG PO (21:30)
[2021-06-23 21:50] VITALS: BP 108/65; PULSE 120; TEMP 99
[2021-06-23 22:10] VITALS: BP 136/80; PULSE 133; TEMP 99.3
[2021-06-24 00:35] VITALS: BP 102/60; PULSE 116; TEMP 99.8
[2021-06-26 05:55] LABS: PATHOLOGY DIFF REVIEW OK +
== END 2021-06-24 00:52 | disposition short-term general hospital (02) ==
LOC: COL.ER 16:18
PROVIDERS: Nurse Practitioner
DX: D70.9 Neutropenia, unspecified (principal); R50.81 Fever presenting with conditions classified elsewhere; K21.9 Gastro-esophageal reflux disease without esophagitis; Z79.899 Other long term (current) drug therapy
CPT/HCPCS: J0692; J1170; J2405; J3370; J7030; J7050; P9035; Q9967

== ENCOUNTER 2021-07-07 17:15 | Emergency (ER) | payer MEDICARE ==
[~2021-07-07] VITALS: Ht 170.2 cm; Wt 46.8 kg
[~2021-07-07 17:15] MED LIST changes: +DECADRON 4MG TAB4 MG PO; +MIRALAX PA17 GM/Dose PO; +TYLENOL ELIX32 MG/M2 PO
[2021-07-07 20:51] VITALS: BP 116/83; PULSE 84; TEMP 98.1
== END 2021-07-07 20:53 | disposition home or self-care (01) ==
LOC: COL.ER 17:15
DX: C49.9 Malignant neoplasm of connective and soft tissue, unspecified (principal)
CPT/HCPCS: J2550; J7030